=== PATIENT | male | born 1995 ===

== ENCOUNTER 2024-01-19 16:15 | Emergency (ER) | payer SELFPAY ==
[~2024-01-19] VITALS: Ht 180.3 cm; Wt 118.2 kg
[2024-01-19] MEDS ORDERED: HALOPERIDOL LACTATE 5MG/ML VIAL IM ONE (16:45)
[2024-01-19] MEDS ORDERED: LORazepam 2 MG/ML 1ML VIAL IM ONE (16:45)
[2024-01-19 17:19] LABS: HEMATOCRIT 47.9 % (42.0-52.0); HEMOGLOBIN 16.4 g/dl (13.5-17.5); MEAN CORPUSCULAR HGB CONC 34.2 g/dl (32.0-36.5); MEAN CORPUSCULAR VOLUME 84.6 fl (80.0-96.0); PLATELET COUNT, AUTOMATED 429 10^3/uL (150-450); RED BLOOD COUNT 5.66 10^6/uL (4.30-6.10); WHITE BLOOD COUNT 12.1 10^3/uL (4.0-10.0)
[2024-01-19 17:43] LABS: ETHYL ALCOHOL (ETHANOL) 0.003 % (0.000-0.010); SALICYLATE LEVEL < 3.0 MG/DL (<30)
[2024-01-19 17:44] LABS: ALBUMIN 4.6 G/DL (3.2-5.2); ALKALINE PHOSPHATASE 51 U/L (46-116); ALT/SGPT 72 U/L (7.0-40); AST/SGOT 41 U/L (<34); BILIRUBIN,DIRECT 0.3 MG/DL (<0.4); BILIRUBIN,TOTAL 1.4 MG/DL (0.3-1.2); BLOOD UREA NITROGEN 17 MG/DL (9-23); CARBON DIOXIDE LEVEL 25 MMOL/L (20-31); CHLORIDE LEVEL 106 MMOL/L (98-107); CREATININE FOR GFR 1.02 MG/DL (0.70-1.30); GLOMERULAR FILTRATION RATE > 60.0 (>60); GLUCOSE, FASTING 91 MG/DL (60-100); SODIUM LEVEL 142 MMOL/L (136-145); TOTAL PROTEIN 7.2 G/DL (5.7-8.2)
[2024-01-19 17:46] LABS: THYROID STIMULATING HORMONE 0.649 uIU/ML (0.55-4.78)
[2024-01-19 18:30] LABS: AMPHETAMINES LEVEL URINE NEGATIVE (NEGATIVE); BARBITURATES URINE NEGATIVE (NEGATIVE); BENZODIAZEPINES URINE NEGATIVE (NEGATIVE); COCAINE METABOLITE URINE NEGATIVE (NEGATIVE); METHADONE URINE NEGATIVE (NEGATIVE); OPIATES URINE NEGATIVE (NEGATIVE); PHENCYCLIDINE URINE NEGATIVE (NEGATIVE)
[2024-01-19 18:32] LABS: CANNABINOIDS URINE POSITIVE (NEGATIVE)
[2024-01-20 01:31] VITALS: BP 135/65; TEMP 97.9; O2SAT 97
== END 2024-01-20 02:15 | disposition home or self-care (01) ==
LOC: M ED 16:15
DX: Z04.6 Encounter for general psychiatric examination, requested by authority (principal); F19.10 Other psychoactive substance abuse, uncomplicated